=== PATIENT | female | born 1975 | race African-American/Black ===

== ENCOUNTER 2017-08-22 07:29 | Emergency (ER) | payer OTHER ==
[~2017-08-22] VITALS: Ht 162.6 cm; Wt 90.0 kg
[2017-08-22 07:30] VITALS: BP 177/82; PULSE 78; RESP 16; TEMP 98.4; O2SAT 99
--- NOTE | 2017-08-22 07:40 | PD ---
HPI Chief Complaint: Cold / Flu Symptoms Time Seen by Provider: 07:40 Travel History International Travel<30 days: No Contact w/Intl Traveler<30days: No Traveled to known affect area: No History of Present Illness HPI 42-year-old Afro-[place] female presents the emergency department with week history of increasing sinus headache, congestion, and postnasal drip. Patient has history of recurrent sinusitis over the past year she states this is the fourth episode similar to this in the last year. She denies significant fever, chest congestion, or chest pain. No nausea or vomiting. She has no known drug allergies. She does take Zyrtec daily but no nasal spray. She was last treated 2 months ago with Augmentin 1 week. PFSH Past Medical History ?: Not Social History Alcohol Use: Yes Tobacco Use: No Substance Use: No Allergies-Medications (Allergen,Severity, Reaction): Coded Allergies: No Known Allergies (Unverified , 08/22/17) Review of Systems Except as stated in HPI: all other systems reviewed are Neg General / Constitutional: Positive: Chills, No: Fever Eyes: No: Visual changes HENT: Positive: Headaches, Rhinitis, Rhinorrhea, Congestion, No: Vertigo, Lightheadedness, Sore Throat, Nosebleed, Neck Stiffness, Neck Pain, Dental Difficulties, Earache Cardiovascular: No: Chest Pain or Discomfort Respiratory: Positive: Cough, No: Shortness of Breath, Wheezing, Sneezing Gastrointestinal: No: Nausea, Vomiting, Diarrhea, Abdominal Pain Genitourinary: No: Dysuria Musculoskeletal: No: Pain Skin: No Rash Neurologic: No: Weakness Psychiatric: No: Depression Endocrine: No: Polydipsia Hematologic/Lymphatic: No: Easy Bruising Physical Exam Narrative GENERAL: Patient appears ill but not septic. SKIN: Warm and dry. Normal color. Normal turgor. HEAD: Atraumatic. Normocephalic. Patient has moderate sinus tender both frontal and maxillary sinus tenderness. EYES: Pupils equal and round. No scleral icterus. No injection or drainage. ENT: No nasal bleeding or discharge. Mucous membranes pink and moist. Posterior pharynx shows erythema and cobblestoning with postnasal drip present. No significant lymphadenopathy or exudate. TMs are clear bilaterally. NECK: Trachea midline. Supple and nontender. CARDIOVASCULAR: Regular rate and rhythm. RESPIRATORY: No accessory muscle use. Clear to auscultation. Breath sounds equal bilaterally. GASTROINTESTINAL: Abdomen soft, non-tender, nondistended. Hepatic and splenic margins not palpable. MUSCULOSKELETAL: Extremities without clubbing, cyanosis, or edema. No obvious deformities. NEUROLOGICAL: Awake and alert. No obvious cranial nerve deficits. Motor grossly within normal limits. Five out of 5 muscle strength in the arms and legs. Normal speech. PSYCHIATRIC: Appropriate mood and affect; insight and judgment normal. Data Data Last Documented VS Vital Signs Date Time Temp Pulse Resp B/P (MAP) Pulse Ox O2 Delivery O2 Flow Rate FiO2 08/22/17 07:30 98.4 78 16 177/82 (113) 99 Room Air MDM Medical Decision Making Medical Screen Exam Complete: Yes Emergency Medical Condition: Yes Differential Diagnosis Recurrent sinusitis. Allergic rhinitis. Postnasal drip. Narrative Course Patient is given Augmentin 875 twice a day 2 weeks. Patient is given Flonase nasal spray 2 sprays each nostril daily. Patient should continue Zyrtec-D as previous. Patient is to follow-up with a local primary care physician and possibly ENT as needed. Work note is given. Diagnosis Primary Impression: Acute recurrent sinusitis Qualified Codes: J01.41 - Acute recurrent pansinusitis Referrals: Primary Care Physician Patient Instructions: General Instructions, Sinusitis (ED) Departure Forms: Work Release Enter return to work date: Aug 24, 2017 Additional Instructions: Patient is given Augmentin 875 twice a day 2 weeks. Patient is given Flonase nasal spray 2 sprays each nostril daily. Patient should continue Zyrtec-D as previous. Patient is to follow-up with a local primary care physician and possibly ENT as needed. Work note is given. Med/Other Pt SpecificInfo: Prescription(s) given Scripts No Active Prescriptions or Reported Meds Disposition: DISCHARGE HOME Condition: Stable [place] Aug 22, 2017 07:40
[2017-08-22] MEDS ORDERED: AUGM875T3 PO (07:51)
[2017-08-22] MEDS ORDERED: FLUT1SPR5 EACH NARE (07:51)
== END 2017-08-22 08:07 | disposition home or self-care (01) ==
LOC: NEPD 07:29
DX: J01.91 Acute recurrent sinusitis, unspecified (principal)
CPT/HCPCS: 99283